=== PATIENT | female | born 1980 | race Caucasian/White ===

== ENCOUNTER 2017-09-26 20:33 | Inpatient (IN) | payer OTHER ==
[~2017-09-26] VITALS: Ht 175.3 cm; Wt 95.9 kg
[2017-09-26 21:03] VITALS: BP 134/77
[2017-09-26] MEDS ORDERED: LACTATED RINGERS 1,000 ML IV SCH (21:41)
[2017-09-26] MEDS ORDERED: OXYTOCIN 30U/ 0.9% NaCL 500ML 500 ML IV ONE (21:41)
[2017-09-26] MEDS ORDERED: D5%-LACTATED RINGERS 1,000 ML IV SCH (21:41)
[2017-09-26] MEDS ORDERED: FENTANYL PF 100 MCG/2ML IVPush PRN (22:00)
[2017-09-26] MEDS ORDERED: ONDANSETRON 2MG/ML, 2ML IVPush PRN (22:00)
[2017-09-26] MEDS ORDERED: FENTANYL PF 100 MCG/2ML IV PRN (22:00)
[2017-09-26] MEDS ORDERED: PLEASE ENTER ALLERGIES MC SCH ×2 (22:00)
[2017-09-26] MEDS ORDERED: CALCIUM CARBONATE 500 MG TAB.CHEW PO PRN (22:00)
[2017-09-26] MEDS ORDERED: NEWBORN KIT ONE (22:03)
[2017-09-26 22:54] LABS: HEMATOCRIT 43.1 % (34.6-47.8); HEMOGLOBIN 14.9 g/dL (11.7-16.4); WHITE BLOOD COUNT 16.9 x10^3/uL (3.4-10)
[2017-09-27] MEDS ORDERED: OXYTOCIN 30U/ 0.9% NaCL 500ML 500 ML ONE ×2 (00:48→02:13)
[2017-09-27] MEDS ORDERED: ACETAMINOPHEN 325 MG TABLET PO PRN ×2 (01:30)
[2017-09-27] MEDS ORDERED: MEASLES,MUMPS&RUBELLA VACC/PF 0.5 ML SQ PRN (01:30)
[2017-09-27] MEDS ORDERED: CALCIUM CARBONATE 500 MG TAB.CHEW PO PRN (01:30)
[2017-09-27] MEDS ORDERED: MISOPROSTOL 200 MCG TABLET PR PRN (01:30)
[2017-09-27] MEDS ORDERED: OXYcodone/APAP 5/325MG TABLET PO PRN ×2 (01:30)
[2017-09-27] MEDS ORDERED: IBUPROFEN 600 MG TABLET PO PRN (01:30)
[2017-09-27] MEDS ORDERED: DIPH,PERTUSS(ACELL),TET VAC/PF NC IM-VACC PRN (01:30)
[2017-09-27] MEDS ORDERED: ONDANSETRON 2MG/ML, 2ML IV PRN (01:30)
[2017-09-27] MEDS ORDERED: DOCUSATE 100 MG CAPSULE PO PRN (01:30)
[2017-09-27] MEDS ORDERED: RHOGAM FROM BLOOD BANK 1 NOTE EA IM/IV ONE (01:30)
[2017-09-27] MEDS ORDERED: MAGNESIUM HYDROXIDE 8%, 30ML UDC PO PRN (01:30)
[2017-09-27] MEDS ORDERED: LIDOCAINE 1%, 20ML ONE (01:32)
[2017-09-27] MEDS ORDERED: MISOPROSTOL 200 MCG TABLET ONE (01:32)
[2017-09-27] MEDS ORDERED: IBUPROFEN 600 MG TABLET ONE (01:59)
[2017-09-27] MEDS: OXYTOCIN 30U/ 0.9% NaCL 500ML 500 ML IV SCH ×2 (02:03→02:17)
[2017-09-27] MEDS ORDERED: OXYcodone/APAP 5/325MG TABLET ONE (02:13)
[2017-09-27 03:55] VITALS: BP 131/72
[2017-09-27 07:50] VITALS: BP 117/67
[2017-09-27] MEDS ORDERED: PRENATAL VIT/IRON/FA 1 EACH TABLET PO SCH (09:00)
[2017-09-27 09:17] LABS: HEMATOCRIT 37.2 % (34.6-47.8); HEMOGLOBIN 12.8 g/dL (11.7-16.4); WHITE BLOOD COUNT 19.6 x10^3/uL (3.4-10)
[2017-09-27 12:05] VITALS: BP 127/81
[2017-09-27] MEDS ORDERED: IBUP-1222 PO (14:34)
[2017-09-27] MEDS ORDERED: [UNRECOGNIZED DRUG - OTHER] (14:35)
[2017-09-27 16:00] VITALS: BP 107/64
[2017-09-27 19:20] VITALS: BP 106/65
== END 2017-09-27 19:45 | disposition home or self-care (01) | DRG 775 ==
LOC: LDOP 20:33 → LDIP 21:50 → 2NW 09-27 03:12
PROVIDERS: ADMIT Obstetrics & Gynecology; ATTEND Obstetrics & Gynecology
PROC: 10E0XZZ Delivery of Products of Conception, External Approach (ICD-10-PCS; principal; 2017-09-27)
DX: O70.0 First degree perineal laceration during delivery (principal); Z37.0 Single live birth; Z3A.40 40 weeks gestation of pregnancy
CPT/HCPCS: 36415; 85025; 86850; 86900; 89060; J2590; Q0114

== ENCOUNTER 2020-06-29 09:05 | Outpatient (CLI) | payer MEDICAID ==
[~2020-06-29 09:05] MED LIST: ASPI-515 PO; ENOX40SY4 SQ; IBUP-1222 PO; PNV1TAB.5 PO; [UNRECOGNIZED DRUG - OTHER]
== END 2020-06-29 09:40 | disposition home or self-care (01) ==
LOC: LDOP 09:05
PROVIDERS: ATTEND Obstetrics & Gynecology
DX: O09.523 Supervision of elderly multigravida, third trimester (principal); Z3A.37 37 weeks gestation of pregnancy
CPT/HCPCS: 59025

== ENCOUNTER → 2020-07-02 | Outpatient (CLI) | payer MEDICAID | END | disposition home or self-care (01) | LOC: STAR 11:15 | PROVIDERS: ATTEND Obstetrics & Gynecology | DX: Z01.812 Encounter for preprocedural laboratory examination (principal); Z20.828 Contact with and (suspected) exposure to other viral communicable diseases | CPT/HCPCS: 36415; 87635 ==

== ENCOUNTER 2020-07-04 04:57 | Inpatient (IN) | payer MEDICAID ==
[~2020-07-04] VITALS: Ht 175.3 cm; Wt 95.2 kg
[2020-07-04] MEDS ORDERED: OXYTOCIN 30U/ 0.9% NaCL 500ML 500 ML IV ONE (05:02)
[2020-07-04] MEDS ORDERED: OXYTOCIN 30U/ 0.9% NaCL 500ML 500 ML IV PRN (05:02)
[2020-07-04] MEDS ORDERED: NEWBORN KIT ONE (05:11)
[2020-07-04] MEDS ORDERED: LIDOCAINE/MPF 2%-EPI 1:200K, 20 ML ONE (05:11)
[2020-07-04] MEDS ORDERED: MISOPROSTOL 200 MCG TABLET ONE (05:12)
[2020-07-04] MEDS ORDERED: OXYTOCIN 30U/ 0.9% NaCL 500ML 500 ML ONE ×2 (05:12→17:17)
[2020-07-04] MEDS ORDERED: TERBUTALINE 1 MG/ML, 1ML SQ PRN (05:30)
[2020-07-04] MEDS ORDERED: FENTANYL PF 100 MCG/2ML IV PRN (05:30)
[2020-07-04] MEDS ORDERED: ONDANSETRON 2MG/ML, 2ML IVPush PRN ×2 (05:30→15:30)
[2020-07-04] MEDS: LACTATED RINGERS 1,000 ML IV SCH ×2 (05:30→10:30)
[2020-07-04] MEDS ORDERED: TERBUTALINE 1 MG/ML, 1ML IVPush PRN (05:30)
[2020-07-04] MEDS ORDERED: MISOPROSTOL 25 MCG TABLET VG PRN (05:30)
[2020-07-04] MEDS ORDERED: FENTANYL PF 100 MCG/2ML IVPush PRN (05:30)
[2020-07-04 05:36] VITALS: BP 139/68
[2020-07-04 05:51] LABS: BASOPHILS # (AUTO) 0.03 x10^3/uL (0-0.1); BASOPHILS % (AUTO) 0 % (0-1); EOSINOPHILS # (AUTO) 0.05 x10^3/uL (0-0.4); EOSINOPHILS % (AUTO) 0 % (1-7); LYMPHOCYTES # (AUTO) 1.89 x10^3/uL (1-3.4); LYMPHOCYTES % (AUTO) 16 % (22-44); MD NO; MEAN CORPUSCULAR HEMOGLOBIN 32.2 pg (27.0-34.8); MEAN CORPUSCULAR HGB CONC 33.5 g/dL (32.4-35.8); MEAN CORPUSCULAR VOLUME 96.2 fL (80-100); MEAN PLATELET VOLUME 7.4 fL (7.4-10.4); MONOCYTES # (AUTO) 0.58 x10^3/uL (0.2-0.8); MONOCYTES % (AUTO) 5 % (2-9); NEUTROPHILS # (AUTO) 9.59 x10^3/uL (1.8-6.8); NEUTROPHILS % (AUTO) 79 % (42-75); PLATELET COUNT 264 x10^3/uL (130-400); RED BLOOD COUNT 4.18 x10^6/uL (3.82-5.3); RED CELL DISTRIBUTION WIDTH 14.7 % (9.6-15.2)
[2020-07-04 07:10] VITALS: BP 131/66
[2020-07-04] MEDS: LACTATED RINGERS 1,000 ML IVBOLUS PRN ×3 (14:10→15:32)
[2020-07-04] MEDS ORDERED: BUPIVACAINE 0.25% ONE (15:04)
[2020-07-04] MEDS ORDERED: FENTANYL/BUPIV./NS/PF 250 ML EPIDCONT ONE (15:04)
[2020-07-04] MEDS ORDERED: LIDOCAINE/PF 1.5%-EPI 1:200K, 30ML ONE (15:06)
[2020-07-04] MEDS ORDERED: LACTATED RINGERS 1,000 ML IV SCH (15:29)
[2020-07-04] MEDS ORDERED: FENTANYL/BUPIV./NS/PF 250 ML EPIDCONT SCH (15:29)
[2020-07-04] MEDS ORDERED: DIPHENHYDRAMINE 50 MG/ML, 1ML IVPush PRN (15:30)
[2020-07-04] MEDS ORDERED: EPHEDRINE 50 MG/ML, 1ML IVPush PRN (15:30)
[2020-07-04] MEDS ORDERED: NALOXONE 0.4 MG/ML, 1ML IVPush PRN (15:30)
[2020-07-04] MEDS: OXYTOCIN 30U/ 0.9% NaCL 500ML 500 ML IV SCH ×6 (16:51→22:35)
[2020-07-04] MEDS ORDERED: ACETAMINOPHEN 325 MG TABLET PO PRN (17:00)
[2020-07-04] MEDS ORDERED: IBUPROFEN 600 MG TABLET PO PRN (17:00)
[2020-07-04] MEDS ORDERED: SIMETHICONE 80 MG CHEW TAB PO PRN (17:00)
[2020-07-04] MEDS ORDERED: MISOPROSTOL 200 MCG TABLET PR PRN (17:00)
[2020-07-04 19:45] VITALS: BP 108/73
[2020-07-04] MEDS ORDERED: OXYcodone IR 5MG TABLET PO PRN (20:00)
[2020-07-04] MEDS: DOCUSATE 100 MG CAPSULE PO PRN (20:14)
[2020-07-04] MEDS: ENOXAPARIN 40 MG/0.4 ML SQ SCH (22:06)
[2020-07-05] MEDS: OXYTOCIN 30U/ 0.9% NaCL 500ML 500 ML IV SCH ×12 (00:01→12:55)
[2020-07-05 00:03] VITALS: BP 108/70
[2020-07-05 00:53] LABS: MEAN CORPUSCULAR HEMOGLOBIN 31.6 pg (27.0-34.8); MEAN CORPUSCULAR VOLUME 95.8 fL (80-100); MEAN PLATELET VOLUME 7.4 fL (7.4-10.4); PLATELET COUNT 234 x10^3/uL (130-400); RED CELL DISTRIBUTION WIDTH 14.3 % (9.6-15.2)
[2020-07-05 01:08] LABS: MD YES
[2020-07-05 01:12] LABS: <PLATELET ESTIMATE> ADEQUATE; <PLT MORPHOLOGY> NORMAL PLT MORPH; <RBC MORPHOLOGY> NORMAL; BAND#(MANUAL) 0.15 x10^3/uL; BANDS%(MANUAL) 1 % (0-7); EOS#(MANUAL) 0.15 x10^3/uL (0.0-0.4); EOS% (MANUAL) 1 % (1-7); LYMPH#(MANUAL) 2.55 x10^3/uL (1-3.4); LYMPHS% (MANUAL) 17 % (22-44); MONOS#(MANUAL) 0.45 x10^3/uL (0.3-2.7); MONOS% (MANUAL) 3 % (2-9); SEGS% (MANUAL) 78 % (42-75)
[2020-07-05 04:07] VITALS: BP 107/72
[2020-07-05] MEDS: ACETAMINOPHEN 325 MG TABLET PO PRN ×3 (04:29→20:02)
[2020-07-05] MEDS ORDERED: ENOXAPARIN 40 MG/0.4 ML SQ SCH (05:00)
[2020-07-05] MEDS ORDERED: OXYTOCIN 30U/ 0.9% NaCL 500ML 500 ML IV PRN ×2 (05:02)
[2020-07-05 07:19] VITALS: BP 112/74
[2020-07-05] MEDS: PRENATAL VIT/IRON/FA 1 EACH TABLET PO SCH (09:00)
[2020-07-05] MEDS: DOCUSATE 100 MG CAPSULE PO PRN ×2 (09:42→20:00)
[2020-07-05 12:37] VITALS: BP 126/82
[2020-07-05 20:00] VITALS: BP 114/68
[2020-07-05] MEDS ORDERED: BISACODYL 10 MG SUPP PR ONE (20:00)
[2020-07-05] MEDS: ENOXAPARIN 40 MG/0.4 ML SQ SCH (21:42)
[2020-07-06 08:20] VITALS: BP 100/65
[2020-07-06] MEDS: PRENATAL VIT/IRON/FA 1 EACH TABLET PO SCH (09:00)
== END 2020-07-06 12:15 | disposition home or self-care (01) | DRG 807 ==
LOC: LDIP 04:57 → 2NW 19:40
PROVIDERS: ADMIT Obstetrics & Gynecology; ATTEND Obstetrics & Gynecology
PROC: 10E0XZZ Delivery of Products of Conception, External Approach (ICD-10-PCS; principal; 2020-07-04)
PROC: 0HQ9XZZ Repair Perineum Skin, External Approach (ICD-10-PCS; 2020-07-04)
PROC: 3E0R3BZ Introduction of Anesthetic Agent into Spinal Canal, Percutaneous Approach (ICD-10-PCS; 2020-07-04)
PROC: 00HU33Z Insertion of Infusion Device into Spinal Canal, Percutaneous Approach (ICD-10-PCS; 2020-07-04)
DX: O70.0 First degree perineal laceration during delivery (principal); Z37.0 Single live birth; Z3A.38 38 weeks gestation of pregnancy; Z20.828 Contact with and (suspected) exposure to other viral communicable diseases
CPT/HCPCS: 36415; 85025; 86592; 86850; 86900; 87635; G0378; J1650; J3490; J2590; J3010; J7120